=== PATIENT | female | born 1950 | race Caucasian/White ===

== ENCOUNTER → 2016-10-21 | Outpatient (CLI) | payer OTHER ==
[~2016-10-21] MED LIST: BUPIVACAINE/EPI 0.25% 30 ML SDV ONE
== END ==
LOC: CIMAGING 07:31
PROVIDERS: ATTEND Family Medicine
DX: Z12.31 Encounter for screening mammogram for malignant neoplasm of breast (principal)
CPT/HCPCS: G0202

== ENCOUNTER 2018-05-22 10:36 | Emergency (ER) | payer OTHER | END 2018-05-22 10:39 | disposition left against medical advice (07) | LOC: CED 10:36 | DX: Z53.21 Procedure and treatment not carried out due to patient leaving prior to being seen by health care provider (principal) ==